=== PATIENT | female | born 2000 | race Two or more races ===

== ENCOUNTER 2023-10-10 18:31 | Emergency (ER) | payer OTHER ==
[~2023-10-10] VITALS: Ht 157.5 cm; Wt 63.5 kg
[2023-10-10] MEDS ORDERED: HYOSCYAMINE SULFATE 0.125 MG TAB.SUBL SL ONE (19:45)
[2023-10-10] MEDS ORDERED: ONDANSETRON HCL 2 MG/ML VIAL IV ONE (19:45)
[2023-10-10] MEDS ORDERED: 0.9 % SODIUM CHLORIDE 1,000 ML IV ONE (19:45)
[2023-10-10] MEDS ORDERED: FAMOTIDINE/PF 20 MG/2 ML VIAL IV PUSH ONE (19:45)
[2023-10-10] MEDS ORDERED: KETOROLAC TROMETHAMINE 15 MG VIAL IV ONE (19:45)
[2023-10-10 20:02] LABS: HEMATOCRIT 38.5 % (36.0-45.00); HEMOGLOBIN 12.8 g/dL (12.0-15.00); MEAN CELL VOLUME 81.7 fL (80.00-100.00); MEAN CORPUSCULAR HEMOGLOBIN 27.3 pg (27.00-32.0); MEAN CORPUSCULAR HGB CONC 33.4 g/dl (32.0-36.0); PLATELET COUNT 287 K/uL (150-450); RED BLOOD COUNT 4.71 M/uL (4.00-6.00); RED CELL DISTRIBUTION WIDTH 13.9 % (11.5-14.5)
[2023-10-10 20:29] LABS: ALBUMIN 3.6 gm/dL (3.4-5.0); BILIRUBIN TOTAL 0.16 mg/dL (0.3-1.2); CALCIUM 8.8 mg/dL (8.5-10.1); CREATININE SERUM 0.66 mg/dL (0.55-1.02); GFR 111.99; GLOBULINA 4.2 G/DL (2.4-3.5); POTASSIUM 3.4 mEq/L (3.5-5.1); TOTAL PROTEIN 7.8 gm/dL (6.4-8.2)
== END 2023-10-10 21:12 | disposition home or self-care (01) ==
LOC: ER 18:31
PROVIDERS: General Practice
DX: K29.70 Gastritis, unspecified, without bleeding (principal); Z20.822 Contact with and (suspected) exposure to COVID-19; Z88.8 Allergy status to other drugs, medicaments and biological substances; Z88.6 Allergy status to analgesic agent; Z91.013 Allergy to seafood

== ENCOUNTER 2024-07-19 12:34 | Emergency (ER) | payer OTHER ==
[~2024-07-19] VITALS: Ht 160 cm; Wt 59.0 kg
[2024-07-19 15:14] VITALS: BP 100/62; O2SAT 100
[2024-07-19] MEDS ORDERED: FAMOTIDINE/PF 20 MG/2 ML VIAL IV PUSH STA (16:06)
[2024-07-19] MEDS ORDERED: ONDANSETRON HCL 2 MG/ML VIAL IV STA (16:07)
[2024-07-19 17:15] LABS: HEMATOCRIT 40.5 % (36.0-45.00); HEMOGLOBIN 13.6 g/dL (12.0-15.00); MEAN CELL VOLUME 84.7 fL (80.00-100.00); MEAN CORPUSCULAR HEMOGLOBIN 28.5 pg (27.00-32.0); MEAN CORPUSCULAR HGB CONC 33.7 g/dl (32.0-36.0); PLATELET COUNT 315 K/uL (150-450); RED BLOOD COUNT 4.79 M/uL (4.00-6.00); RED CELL DISTRIBUTION WIDTH 14.1 % (11.5-14.5)
[2024-07-19 18:07] LABS: ALBUMIN 4.2 gm/dL (3.4-5.0); BILIRUBIN TOTAL 0.51 mg/dL (0.3-1.2); CALCIUM 8.9 mg/dL (8.5-10.1); CREATININE SERUM 0.68 mg/dL (0.55-1.02); GFR 107.22; GLOBULINA 3.9 G/DL (2.4-3.5); POTASSIUM 4.21 mEq/L (3.5-5.1); TOTAL PROTEIN 8.1 gm/dL (6.4-8.2)
== END 2024-07-19 19:32 | disposition home or self-care (01) ==
LOC: ER 12:36
PROVIDERS: General Practice
DX: K30 Functional dyspepsia (principal); Z88.8 Allergy status to other drugs, medicaments and biological substances; Z88.0 Allergy status to penicillin; Z91.013 Allergy to seafood

== ENCOUNTER 2025-06-06 12:49 | Emergency (ER) | payer OTHER ==
[~2025-06-06] VITALS: Ht 157.5 cm; Wt 68.0 kg
[~2025-06-06 12:49] MED LIST: NORFLEX100MG PO
[2025-06-06] MEDS ORDERED: ONDANSETRON HCL 2 MG/ML VIAL IV ONE (15:00)
[2025-06-06] MEDS ORDERED: METRONIDAZOLE/SODIUM CHLORIDE 500 MG/100 ML PIGGYBACK IV ONE ×2 (15:00→15:39)
[2025-06-06] MEDS ORDERED: CIPROFLOXACIN IN 5 % DEXTROSE 400 MG/200 ML PIGGYBAG IV ONE ×2 (15:00→15:39)
[2025-06-06] MEDS ORDERED: HYOSCYAMINE SULFATE 0.125 MG TAB.SUBL SL ONE (15:00)
[2025-06-06] MEDS ORDERED: FAMOTIDINE/PF 20 MG/2 ML VIAL IV ONE (15:00)
[2025-06-06] MEDS ORDERED: MORPHINE SULFATE 2 MG/ML SYRINGE IV ONE (15:30)
[2025-06-06] MEDS ORDERED: ONDANSETRON HCL 2 MG/ML VIAL ONE (15:39)
[2025-06-06] MEDS ORDERED: HYOSCYAMINE SULFATE 0.125 MG TAB.SUBL ONE (15:39)
[2025-06-06] MEDS ORDERED: FAMOTIDINE/PF 20 MG/2 ML VIAL ONE (15:40)
[2025-06-06 16:53] LABS: BASO % 0.2 % (0.1-1.2); EOS # 0.00 (0.04-0.54); EOS % 0.0 % (0.7-7.0); LYMPH # 0.42 (1.18-3.74); LYMPH % 7.7 % (19.3-53.1); MEAN PLATELET VOLUME 9.10 fl (9.4-12.4); MONO # 0.23 (0.24-0.82); MONO % 4.2 % (4.7-12.5); NEUT # 4.76 (1.56-6.13); NEUT % 87.5 % (34.0-71.1); RED CELL DISTRIBUTION WIDTH 13.1 % (11.6-14.4)
[2025-06-06 17:34] LABS: ALT/SGPT 30.0 U/L (12-78); AST/SGOT 13.0 U/L (15-37); BILIRUBIN TOTAL 0.41 mg/dL (0.3-1.2); BUN CREA RATIO 22.0 (7.0-25.0); CREATININE SERUM 0.74 mg/dL (0.55-1.02); GFR 96.42; GLOBULINA 3.6 G/DL (2.4-3.5); GLUCOSE FASTING 97.0 mg/dL (65-100); OSMOLALITY SERUM 282.0 MOSM/KG (275-295)
[2025-06-06 19:33] LABS: URINE APPEARANCE Clear; URINE BILIRRUBIN Negative (NEGATIVE); URINE BLOOD Negative; URINE COLOR Yellow; URINE GLUCOSE Negative (NEGATIVE); URINE LEUKOCYTE Negative; URINE NITRATE Negative; URINE PROTEIN Negative (NEGATIVE); URINE UROBILINOGEN 0.2 E.U./dl
[2025-06-06 19:34] LABS: URINE BACTERIA 1882.7 uL (0.0-1933); URINE EPITHELIAL CELLS 93.2 uL (0.0-38.8); URINE RBC 3.9 uL (0.0-20.8); URINE WBC 32.7 uL (0.0-23.2)
[2025-06-06] MEDS ORDERED: DIPHENHYDRAMINE HCL 50 MG/ML VIAL 1ML IV ONE (19:45)
[2025-06-06] MEDS ORDERED: METHYLPREDNISOLONE SOD SUCC 125 MG VIAL IV ONE (19:45)
[2025-06-06] MEDS ORDERED: DIPHENHYDRAMINE HCL 50 MG/ML VIAL 1ML ONE (19:48)
[2025-06-06] MEDS ORDERED: METHYLPREDNISOLONE SOD SUCC 125 MG VIAL ONE (19:48)
[2025-06-06 19:54] LABS: URINE CAST 0.00 uL (0.0-1.40); URINE KETONE 40 (NEGATIVE)
[2025-06-06 19:57] LABS: URINE MUCUS SCANT
[2025-06-06 19:58] LABS: TYPE CELLS SQUAMOUS
[2025-06-06] MEDS ORDERED: LEVSIN0.125 MG SL (21:38)
[2025-06-06] MEDS ORDERED: PEPCID AC20 MG PO (21:38)
[2025-06-06] MEDS ORDERED: INTESTINEX680 M1 PO (21:38)
== END 2025-06-06 22:45 ==
LOC: ER 12:50
PROVIDERS: General Practice
DX: K52.89 Other specified noninfective gastroenteritis and colitis (principal); Z88.8 Allergy status to other drugs, medicaments and biological substances; Z88.0 Allergy status to penicillin; Z91.013 Allergy to seafood